=== PATIENT | male | born 1935 | race Caucasian/White ===

== ENCOUNTER → 2016-03-17 | Outpatient (CLI) | payer OTHER ==
[~2016-03-17] MED LIST: ADULT LOW DOSE81 MG PO; ALLEGRA180 MG PO; ALLOPURINOL; ALLOPURINOL 30300 M3 PO; DESYREL; DESYREL50 MG PO; ENDOCET 10-3251 EACH PO; FLOMAX PO; HIPREX1 GM PO; LEXAPRO20 MG PO; LIPITOR 20 MG T20 M1 PO; LIPITOR20 MG PO; LISINOPRIL40 MG PO; MELATONIN10 M1 PO; METHADONE HCL 110 M1 PO; METHADONE HCL5 MG PO; MS CONTIN15 MG PO; NITROFURANTOIN50 M4 PO; OMEPRAZOLE; PERCOCET 10-321 EACH PO; PRILOSEC 20 MG20 MG; SOMA250 MG PO; SUBOXONE 8 MG-1 EAC3 SL; TRAZODONE 150150 M1 PO; VOLTAREN GEL 1100 G1 TOP; ZYRTEC
== END ==
LOC: HYPER 07:02
DX: L89.153 Pressure ulcer of sacral region, stage 3 (principal); G14 Postpolio syndrome; Z87.891 Personal history of nicotine dependence